=== PATIENT | female | born 1960 | race Caucasian/White ===

== ENCOUNTER 2020-09-03 01:59 | Emergency (ER) | payer SELFPAY ==
[~2020-09-03] VITALS: Ht 162.5 cm; Wt 67.1 kg
[2020-09-03] MEDS ORDERED: PREDNISONE20 M1 PO (03:42)
== END 2020-09-03 04:04 | disposition home or self-care (01) ==
LOC: ED 01:59
DX: J44.1 Chronic obstructive pulmonary disease with (acute) exacerbation (principal); Z88.8 Allergy status to other drugs, medicaments and biological substances; Z91.040 Latex allergy status; Z87.891 Personal history of nicotine dependence